=== PATIENT | male | born 1935 | race Caucasian/White ===

== ENCOUNTER 2017-10-04 15:35 | Inpatient (IN) | payer MEDICARE ==
[2017-10-04] MEDS ORDERED: Bacitracin Zinc 1 Packet ONE (16:36)
[2017-10-04 19:02] VITALS: BMI 35.9
--- NOTE | 2017-10-04 19:03 | HP ---
PRIMARY CARE PHYSICIAN: Dr. Arcadio Downey. HISTORY OF PRESENT ILLNESS: Patient is a very pleasant 81-year-old male who was visiting his mother- in-law at the correction. When he went to get into his car and turned around, he felt a little diz zy and then patient stated that he felt that his whole left side became very numb and he was unable t o move his left side. The patient also had a little scab to his left forehead from the car door. Th e patient stated that he was able to move his right hand when he started honking and blowing the horn and got someone's attention who then came into assist him. Patient was then taken to the ER. He un derwent a CT head that was done and it was negative. Patient's initial NIH score was I believe 12 on the field, but then it went down to 6 and when he came into our ER, he was zero. Patient currently denies any symptoms. The patient states that his blood pressure for the past few days have been very labile. PAST MEDICAL HISTORY: History of prostate cancer and high cholesterol. PAST SURGICAL HISTORY: He has had a hernia repair in the right side, prostatectomy and left knee rep lacement. SOCIAL HISTORY: He is a former smoker. Denies any alcohol or drug use. FAMILY HISTORY: No significant family history for strokes. MEDICATION: He takes only Lipitor 20 mg a day. ALLERGIES: No known drug allergies. REVIEW OF SYSTEMS: All negative except for the ones mentioned above in the HPI. PHYSICAL EXAMINATION: VITAL SIGNS: Patient is afebrile at 98.8, heart rate of 89, 16, 99% on room air, blood pressure of 1 60/100. GENERAL: He is awake, alert, oriented x3, does not appear in any distress. CARDIOVASCULAR: S1 and S2 present. No murmurs, rubs or gallops. HEENT: Normocephalic, atraumatic. LUNGS: Clear to auscultation. No rhonchi or wheezes noted. ABDOMEN: Soft, obese. Bowel sounds are present x2. He does have a large abdominal hernia. Neurolo gical thayer, he is able to move bilateral upper extremities and bilateral lower extremities without an y problems. Sensation intact to bilateral upper and bilateral lower. NEUROLOGIC: Cranial nerves 3-11 intact. Cerebellar tests including [id number]-[id number] and glcn-la-kfcd intact. SKIN: No cuts or bruises noted. MUSCULOSKELETAL: He does have some weakness on the left leg from hip and back pain. LABORATORY DATA AND IMAGING DATA: Results are as the following; his white count of 10.4, hemoglobin of 15.2, hematocrit of 41.2 and platelets of 237. His chemistry; sodium of 143, potassium 4.1, bicar bonate of 19, anion gap of 16, BUN of 21, creatinine 1.01. LFTs are normal and his urine was not com pleted. EKG has some T-wave flattening in the lateral leads in V5 and V6. ASSESSMENT AND PLAN: 1. The patient is a very pleasant 81-year-old male who comes into the hospital with left-sided weakn ess. 2. Transient ischemic attack versus stroke. The patient's symptoms have currently resolved. As CT head negative, I am not sure if he is able to get an MRI given his metal plates in his left knee. We will get an echocardiogram. We will get carotid Dopplers and we will also check a lipid panel in th e morning. We will also consult Neurology and continue his statin and start him on aspirin since he does not take aspirin at home. 3. Hyperlipidemia. We will check high cholesterol level and increase his Lipitor from 20 to 40. 4. Deep venous thrombosis prophylaxis, we will put the patient on SCD.
[2017-10-04] MEDS: Atorvastatin Calcium 40 MG TAB PO SCH (20:23)
[2017-10-04] MEDS ORDERED: Acetaminophen 325 MG TAB PO PRN (21:58)
[2017-10-04] MEDS ORDERED: Ondansetron ODT 4 MG TAB SL PRN (21:58)
[2017-10-04] MEDS ORDERED: Sodium Chloride 0.9% 1,000 ML IV SCH (21:58)
[2017-10-04] MEDS ORDERED: Ondansetron HCl/PF 4 MG/2 ML Vial IVP PRN (21:58)
[2017-10-05 05:28] LABS: Cardiac Risk 2.8 (Less than 4.5)
[2017-10-05] MEDS: Aspirin 325 mg Enteric Coated Tablet PO SCH (08:02)
[2017-10-05] MEDS: Enoxaparin Sodium 40 MG/0.4 ML SYRINGE SC SCH (08:03)
--- NOTE | 2017-10-05 09:10 | ULT ---
BILATERAL CAROTID DUPLEX ULTRASOUND: Date: 10/05/17 HISTORY: Left-sided weakness. FINDINGS: Real-time color Doppler evaluation of the right and left carotid systems was performed. A small amoun t of calcified plaque at the origin of both internal carotid arteries is seen. On the right side, peak systolic velocities of the common carotid were 70 cm/second. Internal carotid velocities were 47 cm/second and external carotid velocities were 46 cm/second. On the left side, peak systolic velocities of the common carotid were 73 cm/second. Internal carotid velocities were 62 cm/second and external carotid velocities were 43 cm/second. Vertebral flow was antegrade bilaterally. IMPRESSION: No evidence of hemodynamically significant stenosis of either internal carotid artery. POS: EZEKIEL
[2017-10-05] MEDS ORDERED: Acetaminophen 325 MG TAB PO PRN ×2 (11:58→12:00)
--- NOTE | 2017-10-05 12:34 | CON ---
DATE OF CONSULTATION: 10/05/2017 CHIEF COMPLAINT: Left-sided weakness, which was transient. HISTORY OF PRESENT ILLNESS: The patient is a 81-year-old gentleman with known history of hypertension. He reports since August he has been under significant stress. He and his are the primary caregivers for his qhszal-os-sno, who is 94. She had to be admitted to a care home in August and he has been taking care of that situation. The patient reports he got into his car, turned around and felt dizzy, and he felt his whole left side was numb and he could not lift his left arm. He also had hit the car door and he tried to alert by using his right hand and got someone's attention and he was taken to a local emergency room. He had a CT scan of the head. I do not have access to that report, but records state that his CT was negative. He improved subsequently, and upon arrival to our [facility] ER, he was close to baseline, but he continued to have dizziness and did not feel well through the night. This morning, he got up and walked quite a bit with the therapist, but therapist reports that he was still reporting some dizziness and she noted elevated blood pressures even today. PREVIOUS MEDICAL HISTORY: Prostate cancer in remission and hypercholesterolemia plus hypertension. PAST SURGICAL HISTORY: Hernia repair, prostate surgery, and left knee replacement with a steel joint. SOCIAL HISTORY: He does not smoke or drink and he stated, as a child, he learned he should not smoke or drink. He lives with his . He and his look after his ljmhty-fi-rxz, who is currently 94 years of age and had to be admitted to a care home. FAMILY HISTORY: On his side, he states there is no one with high blood pressure or strokes. CURRENT MEDICATIONS: Lipitor 20 mg per day. ALLERGIES: No drug allergies. REVIEW OF SYSTEMS: Pulmonary: Normal. Cardiac: Normal. Genitourinary: Positive for prior prostate problems. Gastrointestinal: Normal. Hematological : Normal. Dermatological: Normal. Neurological: Positive for numbness and weakness in the left arm, which was transient. Orthopedic: Hip problems for a couple of months. He has arthritis. CURRENT WORKUP: So far is pending MRI. His laboratory report showed triglycerides 65, cholesterol 136, LDL 75, HDL 48, heart disease risk ratio is 2.8, and other labs including hematology shows white count 10.4, hemoglobin 15.2 , hematocrit 41.2, platelets 237. PT 13.2, INR 1.0. Chemistry: Normal. Sodium at 143, potassium 4.9, chloride 112, bicarbonate 19, BUN 21, creatinine 1 , and liver function tests were within normal limits. Lipase was also within normal limits. TSH 1.41 and urinalysis was negative. CT scan of the head report is not available to me. PHYSICAL EXAMINATION: VITAL SIGNS: Blood pressure 151/102, pulse is 76, temperature 97.9, respiratory rate 18, O2 sats 94. GENERAL APPEARANCE: A well-built, well-nourished man, who is resting comfortably. Son was by his bedside. He has a small injury in the left forehead from falling on the car door. CHEST: Clear vesicular breathing. CARDIOVASCULAR: S1 and S2 heard, no murmurs. Carotids are clear. ABDOMEN: Soft, nontender, no organomegaly noted. NEUROLOGIC: Higher intellectual functions: Normal orientation to time place and person. Cranial nerves II-XII, normal extraocular movements with normal fundus examination. Normal pupillary reaction. No facial asymmetry noted. Normal sensation of face bilaterally. Tongue midline, normal elevation of palate. Normal hearing bilaterally to finger rub.Motor Examination: Bulk normal, tone normal, strength 5/5 throughout in upper and lower extremities. There was some limitation of testing in the left iliopsoas due to his hip pain. Muscle groups tested are iliopsoas, hamstrings, quadriceps, ankle dorsiflexion, plantar flexion, deltoid, biceps, triceps, wrist extension/flexion, finger extension and flexion bilaterally. Deep tendon reflexes were 1+ throughout. Sensory Examination: Normal touch, pinprick, proprioception, vibration, and temperature bilaterally except for left toe. Cerebellar: Normal [id number]-[id number] , ucik-zz-rkky. Gait not tested. IMPRESSION: The patient is a 81-year-old man with history of sudden onset dizziness along with left upper extremity weakness and left-sided numbness. He has a prior hip problem on the left side. He notices asymmetry of his hips and this particular hip issue has been going on for 2 months. His symptoms resolved through the night and currently his examination is essentially normal except for some limitation of motor testing in the left lower extremity, mainly for hip flexion, which seems to hurt the patient. Clinical diagnosis is most consistent with transient ischemic attack. At this time, we are waiting on his MRI scan. RECOMMENDATIONS: 1. Try to complete the MRI of the brain to see if there was any acute event, please complete his stroke workup including echocardiogram, carotid Doppler. 2. Risk factor control, particularly for his hypertension. 3. Stress relief and management of personally stressful situations and education regarding this. 4. Aspirin 81 mg per day for stroke prophylaxis. 5. If MRI is negative, he can be discharged home with a followup with his general physician. HEATHER
--- NOTE | 2017-10-05 13:35 | MRI ---
MRI BRAIN PERFORMED WITHOUT CONTRAST ENHANCEMENT: Date: 10/05/17 HISTORY: Stroke symptoms. Left-sided weakness. COMPARISON: CT examination done yesterday. FINDINGS: There is generalized ventricular and sulcal prominence. There are areas of T2 and FLAIR hyperintensit y within the white matter consistent with some chronic white matter change. On the diffusion-weighted sequence, there are a few scattered areas of restricted diffusion over the right posterior frontopar ietal region, as well as an area within the right thalamus that are compatible with more acute infarc t. These would be in a right MCA distribution. I do not appreciate any hemorrhage on the diffusion-we ighted sequence. IMPRESSION: A few scattered more linear foci along the gyri in the right posterior frontoparietal region consiste nt with acute to subacute infarct. POS: EZEKIEL
--- NOTE | 2017-10-05 15:16 | PDOC.PN ---
- Subjective Encounter Start Date: 10/05/17 Encounter Start Time: 10:30 Subjective: pt up in bed no complains - Objective Vital Signs & Weight: Vital Signs (12 hours) Temp Pulse Resp BP Pulse Ox 10/05/17 13:26 94 L 10/05/17 11:29 97.9 F 76 18 151/102 H 94 L 10/05/17 08:00 97.8 F 76 16 10/05/17 07:17 97.8 F 76 16 145/97 H 94 L 10/05/17 04:47 97.6 F 65 20 145/97 H 95 Weight Weight 222 lb 5 oz I&O: 10/04/17 10/05/17 10/06/17 06:59 06:59 06:59 Intake Total 340 Output Total 1050 Balance -710 Phys Exam - Physical Examination HEENT: PERRLA, moist MMs, sclera anicteric, TM's clear, oral pharynx no lesions , 2+ tonsils Neck: no nodes, no JVD, supple, full ROM Respiratory: no wheezing, no rales, no rhonchi, wheezing present, clear to auscultation bilateral Cardiovascular: RRR, no significant murmur, no rub, gallop, irregular Gastrointestinal: soft, non-tender, no distention, positive bowel sounds Musculoskeletal: no edema, pulses present, edema present Neurological: non-focal, normal sensation, moves all 4 limbs Dx/Plan (1) Stroke Code(s): I63.9 - CEREBRAL INFARCTION, UNSPECIFIED Status: Acute (2) TIA (transient ischemic attack) Status: Acute (3) Hyperlipemia Code(s): E78.5 - HYPERLIPIDEMIA, UNSPECIFIED Status: Acute - Plan * . carotid no stenosis noted echo pending MRi did indicated some restrictive foci noted pt on asa and statin. Review of Systems - Review of Systems ENT: negative: Ear Pain, Ear Discharge, Nose Pain, Nose Discharge, Nose Congestion, Mouth Pain, Mouth Swelling, Throat Pain, Throat Swelling, Other Respiratory: negative: Cough, Dry, Shortness of Breath, Hemoptysis, SOB with Excertion, Pleuritic Pain, Sputum, Wheezing Cardiovascular: negative: chest pain, palpitations, orthopnea, paroxysmal nocturnal dyspnea, edema, light headedness, other Gastrointestinal: negative: Nausea, Vomiting, Abdominal Pain, Diarrhea, Constipation, Melena, Hematochezia, Other - Medications/Allergies Allergies/Adverse Reactions: Allergies Allergy/AdvReac Type Severity Reaction Status Date / Time No Known Drug Allergies Allergy Verified 10/04/17 21:40 Medications: Current Medications Acetaminophen (Tylenol) 650 mg PO Q6H PRN PRN Reason: Pain Last Admin: 10/05/17 12:49 Dose: 650 mg Aspirin (Ecotrin) 325 mg PO DAILY [facility] Last Admin: 10/05/17 08:02 Dose: 325 mg Atorvastatin Calcium (Lipitor) 40 mg PO HS [facility] Last Admin: 10/04/17 20:23 Dose: 40 mg Enoxaparin Sodium (Lovenox) 40 mg SC 0900 [facility] Last Admin: 10/05/17 08:03 Dose: 40 mg Sodium Chloride (Flush - Normal Saline) 10 ml IVF Q12HR [facility] Last Admin: 10/05/17 08:03 Dose: 10 ml Sodium Chloride (Flush - Normal Saline) 10 ml IVF PRN PRN PRN Reason: Saline Flush
[2017-10-05] MEDS: Atorvastatin Calcium 40 MG TAB PO SCH (20:31)
[2017-10-06] MEDS: Enoxaparin Sodium 40 MG/0.4 ML SYRINGE SC SCH (08:26)
[2017-10-06] MEDS: Aspirin 325 mg Enteric Coated Tablet PO SCH (08:26)
[2017-10-06] MEDS ORDERED: ISOVUE-370 76%-LOCM 1 ML ONE (09:42)
--- NOTE | 2017-10-06 12:09 | RAD ---
LEFT HIP 2 VIEWS: Date: 10/06/17 HISTORY: Left hip pain. FINDINGS: There are degenerative changes in the left hip manifested by osteophyte formation, joint space narrow ing, and subchondral sclerosis. No fracture, dislocation, or bony destruction seen. Postop changes se en in the pelvis. IMPRESSION: Left hip osteoarthritis. POS: EZEKIEL
--- NOTE | 2017-10-06 14:16 | CT ---
CONTRAST ENHANCED CTA CAROTID ARTERIES: HISTORY: Stroke. FINDINGS: Contrast-enhanced CTA carotid artery is obtained and 2D and 3D reconstructed images performed on an [employer] 3D work station. Some calcification is seen in the aortic arch. No significant evidence of superior mediastinal mariel s or lesions seen. The right brachiocephalic artery is patent. Right and left common carotid arteries are patent. The right and left internal carotid arteries are patent. No significant evidence of stenosis or ulce ration seen. Right and left vertebral arteries are unremarkable. IMPRESSION: Unremarkable contrast-enhanced CTA of carotid arteries. POS: EZEKIEL
[2017-10-06] MEDS ORDERED: ALPRAZolam 0.25 MG TAB PO PRN (16:40)
[2017-10-06] MEDS: Carvedilol 6.25 MG TAB PO SCH (17:19)
[2017-10-06] MEDS: traMADol HCl 50 MG TAB PO PRN (17:20)
--- NOTE | 2017-10-06 18:26 | PDOC.PN ---
- Subjective Encounter Start Date: 10/06/17 Encounter Start Time: 11:30 Subjective: pt up in bed complains of pain to his left hip - Objective Vital Signs & Weight: Vital Signs (12 hours) Temp Pulse Pulse Pulse Resp BP BP 10/06/17 17:19 135/106 H 10/06/17 15:37 99.2 F 79 16 10/06/17 11:32 98.5 F 76 14 10/06/17 11:15 80 84 154/110 H BP BP Pulse Ox 10/06/17 17:19 10/06/17 15:37 147/96 H 94 L 10/06/17 11:32 146/112 H 94 L 10/06/17 11:15 158/127 H I&O: 10/05/17 10/06/17 10/07/17 06:59 06:59 06:59 Intake Total 900 Balance 900 Phys Exam - Physical Examination HEENT: PERRLA, moist MMs, sclera anicteric, TM's clear, oral pharynx no lesions , 2+ tonsils Neck: no nodes, no JVD, supple, full ROM Respiratory: no wheezing, no rales, no rhonchi, wheezing present, clear to auscultation bilateral Cardiovascular: RRR, no significant murmur, no rub, gallop, irregular Gastrointestinal: soft, non-tender, no distention, positive bowel sounds mild pain on movement of left hip joint Dx/Plan (1) Stroke Code(s): I63.9 - CEREBRAL INFARCTION, UNSPECIFIED Status: Acute (2) TIA (transient ischemic attack) Status: Acute (3) Hyperlipemia Code(s): E78.5 - HYPERLIPIDEMIA, UNSPECIFIED Status: Acute (4) Systolic heart failure Code(s): I50.20 - UNSPECIFIED SYSTOLIC (CONGESTIVE) HEART FAILURE Status: Acute - Plan * Pt complained of left hip pain xray indicated osteoarthritis. * spoke with neurology about pt's MRI results. does not appear to be embolic. * did order cta neck since small amount of plaque noted in internal artery origin. * ef of 40-45% which is new. will get cardiology * bp meds added for better bp control * pt on asa/statin Review of Systems - Review of Systems ENT: negative: Ear Pain, Ear Discharge, Nose Pain, Nose Discharge, Nose Congestion, Mouth Pain, Mouth Swelling, Throat Pain, Throat Swelling, Other Respiratory: negative: Cough, Dry, Shortness of Breath, Hemoptysis, SOB with Excertion, Pleuritic Pain, Sputum, Wheezing Cardiovascular: negative: chest pain, palpitations, orthopnea, paroxysmal nocturnal dyspnea, edema, light headedness, other Gastrointestinal: negative: Nausea, Vomiting, Abdominal Pain, Diarrhea, Constipation, Melena, Hematochezia, Other Musculoskeletal: Other (left hip pain) - Medications/Allergies Allergies/Adverse Reactions: Allergies Allergy/AdvReac Type Severity Reaction Status Date / Time No Known Drug Allergies Allergy Verified 10/04/17 21:40 Medications: Current Medications Acetaminophen (Tylenol) 650 mg PO Q6H PRN PRN Reason: Pain Last Admin: 10/05/17 12:49 Dose: 650 mg Alprazolam (Xanax) 0.25 mg PO BIDPRN PRN PRN Reason: Anxiety Amlodipine Besylate (Norvasc) 10 mg PO DAILY [facility] Aspirin (Ecotrin) 325 mg PO DAILY [facility] Last Admin: 10/06/17 08:26 Dose: 325 mg Atorvastatin Calcium (Lipitor) 40 mg PO HS [facility] Last Admin: 10/05/17 20:31 Dose: 40 mg Carvedilol (Coreg) 6.25 mg PO BID-WM [facility] Last Admin: 10/06/17 17:19 Dose: 6.25 mg Enoxaparin Sodium (Lovenox) 40 mg SC 0900 [facility] Last Admin: 10/06/17 08:26 Dose: 40 mg Sodium Chloride (Flush - Normal Saline) 10 ml IVF Q12HR [facility] Last Admin: 10/06/17 08:27 Dose: 10 ml Sodium Chloride (Flush - Normal Saline) 10 ml IVF PRN PRN PRN Reason: Saline Flush Tramadol HCl (Ultram) 50 mg PO Q6H PRN PRN Reason: Mild-Moderate Pain (1-5) Last Admin: 10/06/17 17:20 Dose: 50 mg
[2017-10-06] MEDS: Atorvastatin Calcium 40 MG TAB PO SCH (20:54)
--- NOTE | 2017-10-06 22:19 | PRG ---
DATE OF SERVICE: 10/06/2017 SUBJECTIVE: Mr. Montanez is a pleasant 81-year-old male, who presented with an acute onset o f left-sided weakness. He had MRI brain done, which showed few scattered right middle cerebral arter y distribution ischemic infarct. Today, he reports having noted improvement in his strength. He is able to move his left upper and left lower extremity without any difficulty. He was able to walk wit h support of therapist independently without any difficulty. Currently, he denies any headache, ches t pain, palpitation, numbness, tingling or weakness. PHYSICAL EXAMINATION: VITAL SIGNS: Blood pressure of 147/96, pulse of 79, temperature of 99.2, respirations of 16, O2 sats of 94% on room air. GENERAL: Well-developed, well-nourished male, in no apparent distress. RESPIRATORY: Clear to auscultation bilaterally. CARDIOVASCULAR: Regular rate and rhythm. NEUROLOGICAL: Mental status: The patient is awake, alert, oriented x3. Speech and language: Fluen t speech. Cranial nerves: Pupils are 3 mm and reactive. Visual vizcarra are intact. External muscle s are intact. No nystagmus is noted. Face is symmetric. Tongue and uvula are midline. Motor exam showed normal tone and bulk with 5/5 strength in both upper and lower extremities. Sensory: Sensati on is intact and symmetric. Coordination intact to ipitdy-lctp-dlcjil and finger tapping bilaterally . LABORATORY DATA: Labs are reviewed, which includes lipid profile, which is essentially normal. IMAGING STUDIES: MRI brain without contrast was reviewed, showed a few scattered right middle cerebr al artery distribution ischemic infarct. Carotid Doppler results were reviewed, which showed no acut e extracranial vascular abnormality. IMPRESSION: 1. Cerebral infarction. 2. Hypertension. ASSESSMENT AND PLAN: Mr. Montanez is a pleasant 81-year-old male, who presented with the lef t-sided weakness. He is found to have scattered right middle cerebral artery distribution ischemic i nfarct. This is likely secondary to poorly controlled risk factors including high blood pressure. I have recommended Dr. Yañez to obtain a CT angiogram of the neck to rule out a vascular abnormality as the cause for his stroke. Continue PT, OT, speech therapy. If physical therapy agrees for outpat ient therapy, then he is okay to be discharged home. Follow up with his primary care physician in 4- 6 weeks. Thank you for your consultation.
[2017-10-07] MEDS ORDERED: Amlodipine 10 MG TAB PO SCH (09:00)
[2017-10-07] MEDS: Carvedilol 6.25 MG TAB PO SCH ×2 (09:32→16:13)
[2017-10-07] MEDS: Aspirin 325 mg Enteric Coated Tablet PO SCH (09:33)
[2017-10-07] MEDS: traMADol HCl 50 MG TAB PO PRN ×2 (09:34→16:15)
[2017-10-07] MEDS: Enoxaparin Sodium 40 MG/0.4 ML SYRINGE SC SCH (09:36)
--- NOTE | 2017-10-07 11:05 | CON ---
DATE OF CONSULTATION: 10/07/2017 HISTORY OF PRESENT ILLNESS: Patient is a pleasant 81-year-old gentleman, who presented with left-sided weakness. The patient has a previous history of hypertension and dyslipidemia. The patient underwent a cardiac evaluation in 2012. He underwent a stress test, which revealed evidence of ischemia in one distribution. The patient was placed on medical therapy. He was in his usual state of health when he developed acute onset of left-sided weakness. He denied having difficulty with his speech. The patient states the symptom lasted for approximately an hour. He came to the hospital for further evaluation. The patient denied having any chest pain or palpitations. PAST MEDICAL HISTORY: 1. Prostate carcinoma. 2. Hypertension. 3. Dyslipidemia. PAST SURGICAL HISTORY: SOCIAL HISTORY: Former smoker. FAMILY HISTORY: No strong family history of coronary artery disease. MEDICATIONS ON ADMISSION: Coreg 6.25 b.i.d., Lipitor 40 at bedtime, aspirin 325 daily, Norvasc 10 daily. REVIEW OF SYSTEMS: Ten-point system, otherwise, unremarkable. PHYSICAL EXAMINATION: GENERAL: A well-developed gentleman in no acute distress. VITAL SIGNS: Blood pressure 126/96. NECK: No jugular vein distention. LUNGS: Clear to auscultation. HEART: Regular rate and rhythm, normal S1 and S2 with a 1/6 systolic murmur. ABDOMEN: Nondistended. EXTREMITIES: Showed trace edema. SKIN: Warm and dry. NEUROLOGIC EXAM: Nonfocal. VASCULAR: Radial pulses are 2+. LABORATORY RESULTS: Revealed him to have his white blood count 10.4, hemoglobin 15.2, hematocrit 41.2, platelets 237. Sodium was 143, potassium 4.1 , chloride 112, bicarbonate 19, BUN 21, creatinine is 1.0. His glucose is 95. His EKG revealed him to have normal sinus rhythm with a nonspecific ST abnormality. monitoring coordinator revealed several runs of nonsustained ventricular tachycardia. His echocardiogram revealed him to have a mild decreased left ventricular ejection fraction of 40%-45%, mild aortic stenosis. IMPRESSION: 1. Transient ischemic attack. 2. Mild cardiomyopathy. 3. Nonsustained ventricular tachycardia. 4. Hypertension 5. Dyslipidemia. 6. Aortic stenosis This gentleman presents with a transient ischemia attack. He was found on echocardiogram to have a decreased ejection fraction on monitor technician and have nonsustained ventricular tachycardia. From a cardiac standpoint, I would recommend increasing the dose of Coreg. With a decreased ejection fraction , I would recommend the patient switch from Norvasc to DENA inhibitor therapy. The patient may benefit from a LINQ monitor to monitor for ventricular tachycardia and possible atrial fibrillation. We will follow this patient with you through his hospitalization. Further recommendation will follow. MTDD
--- NOTE | 2017-10-07 12:17 | PDOC.PN ---
- Subjective Encounter Start Date: 10/07/17 Encounter Start Time: 12:25 Patient seen and examined following admission for TIA/CVA. ECHO showed EF 40-45% . Complains of L rib pain following a fall at home. Otherwise feels well. No acute events overnight. - Objective MAR Reviewed: Yes Vital Signs & Weight: Vital Signs (12 hours) Temp Pulse Resp BP BP Pulse Ox 10/07/17 12:00 97.8 F 65 16 114/76 96 10/07/17 09:33 65 10/07/17 09:32 126/96 H 10/07/17 07:43 97.5 F L 65 16 126/96 H 93 L 10/07/17 04:00 97.9 F 62 122/93 H 94 L Weight Weight 216 lb 9.6 oz I&O: 10/06/17 10/07/17 10/08/17 06:59 06:59 06:59 Intake Total 1140 Output Total 925 Balance 215 Phys Exam - Physical Examination Constitutional: NAD HEENT: moist MMs, sclera anicteric, oral pharynx no lesions Neck: no JVD, supple, full ROM Respiratory: no wheezing, no rales, no rhonchi, clear to auscultation bilateral Cardiovascular: RRR, no significant murmur, no rub Musculoskeletal: no edema, pulses present Neurological: non-focal Psychiatric: normal affect, A&O x 3 Skin: no rash, normal turgor Dx/Plan (1) Systolic CHF, chronic Code(s): I50.22 - CHRONIC SYSTOLIC (CONGESTIVE) HEART FAILURE Status: Chronic Comment: Stable, euvolemic. EF 40-45%. (2) Hyperlipemia Code(s): E78.5 - HYPERLIPIDEMIA, UNSPECIFIED Status: Acute Qualifiers: Hyperlipidemia type: unspecified Qualified Code(s): E78.5 - Hyperlipidemia , unspecified (3) Stroke Code(s): I63.9 - CEREBRAL INFARCTION, UNSPECIFIED Status: Acute Qualifiers: CVA mechanism: thrombosis Laterality of affected vessel: unspecified (4) Rib pain on left side Code(s): R07.81 - PLEURODYNIA Status: Acute Comment: Obtain CXR. - Plan cont current plan of care, continue antibiotics, DVT proph w/lovenox * . Review of Systems - Medications/Allergies Allergies/Adverse Reactions: Allergies Allergy/AdvReac Type Severity Reaction Status Date / Time No Known Drug Allergies Allergy Verified 10/04/17 21:40 Medications: Current Medications Acetaminophen (Tylenol) 650 mg PO Q6H PRN PRN Reason: Pain Last Admin: 10/05/17 12:49 Dose: 650 mg Alprazolam (Xanax) 0.25 mg PO BIDPRN PRN PRN Reason: Anxiety Aspirin (Ecotrin) 325 mg PO DAILY [facility] Last Admin: 10/07/17 09:33 Dose: 325 mg Atorvastatin Calcium (Lipitor) 40 mg PO HS [facility] Last Admin: 10/06/17 20:54 Dose: 40 mg Carvedilol (Coreg) 12.5 mg PO BID-[facility] Enoxaparin Sodium (Lovenox) 40 mg SC 0900 [facility] Last Admin: 10/07/17 09:36 Dose: 40 mg Lisinopril (Zestril) 10 mg PO DAILY [facility] Sodium Chloride (Flush - Normal Saline) 10 ml IVF Q12HR [facility] Last Admin: 10/07/17 09:38 Dose: 10 ml Sodium Chloride (Flush - Normal Saline) 10 ml IVF PRN PRN PRN Reason: Saline Flush Tramadol HCl (Ultram) 50 mg PO Q6H PRN PRN Reason: Mild-Moderate Pain (1-5) Last Admin: 10/07/17 09:34 Dose: 50 mg
--- NOTE | 2017-10-07 15:00 | RAD ---
PORTABLE AP CHEST XRAY: DATE: 10/07/17. HISTORY: Left rib pain. COMPARISON: None available. FINDINGS: There is elevation of the left hemidiaphragm with atelectasis at the left lung base. Right lung is c lear. Cardiac silhouette is magnified by projection but is at the upper limits of normal to borderli ne enlarged. Thoracic aorta is ectatic with minimal vascular calcifications. Pulmonary vasculature is within normal limits. There are curvilinear calcifications overlying each lung apex, but no pleur al-based calcifications were seen on CT of the neck also obtained on this date just after this study was performed. Findings may be related to superimposition of structures. Mild degenerative change is seen in the spine. IMPRESSION: 1. Elevation of left hemidiaphragm with mild volume loss at the left lung base. 2. Upper limits of normal to borderline cardiomegaly. POS: [facility]
[2017-10-07] MEDS: Atorvastatin Calcium 40 MG TAB PO SCH (21:40)
[2017-10-08 05:26] LABS: Hemoglobin 14.2 g/dL (14.0-18.0); Mean Corpuscular HGB CONC 33.9 g/dL (32.0-36.0); Mean Corpuscular Volume 94.5 fL (78.0-98.0); Mean Platelet Volume 7.1 fL (7.4-10.4); Platelet Count 220 thou/uL (130-400); RBC Distribution Width 12.1 % (11.5-14.5); Red Blood Cell (RBC) Count 4.43 mill/uL (4.70-6.10); White Blood Cell (WBC) Count 9.1 thou/uL (4.8-10.8)
[2017-10-08 05:58] LABS: Anion Gap 11 mmol/L (10-20); BUN (Urea Nitrogen) 23 mg/dL (8.4-25.7); Calc. Creatinine Clearance 101 mL/min (70-130); Calcium 9.3 mg/dL (7.8-10.44); Carbon Dioxide 26 mmol/L (23-31); Chloride 107 mmol/L (98-107); Estimated GFR-MDRD 88; Glucose 80 mg/dL (83-110); Potassium 4.1 mmol/L (3.5-5.1); Sodium 140 mmol/L (136-145)
[2017-10-08] MEDS ORDERED: Lisinopril 10 MG TAB PO SCH (09:00)
[2017-10-08] MEDS: Aspirin 325 mg Enteric Coated Tablet PO SCH (09:44)
[2017-10-08] MEDS: Carvedilol 6.25 MG TAB PO SCH ×2 (09:44→15:52)
[2017-10-08] MEDS: Enoxaparin Sodium 40 MG/0.4 ML SYRINGE SC SCH (09:45)
[2017-10-08] MEDS: traMADol HCl 50 MG TAB PO PRN (09:45)
--- NOTE | 2017-10-08 11:32 | PDOC.PN ---
- Subjective Encounter Start Date: 10/08/17 Encounter Start Time: 11:32 Patient seen and examined following admission for TIA/CVA. ECHO showed EF 40-45% .No new complaints today. Had NSVT on tele. Cardiology on board. No acute events overnight. - Objective MAR Reviewed: Yes Vital Signs & Weight: Vital Signs (12 hours) Temp Pulse Resp BP Pulse Ox 10/08/17 08:45 97.5 F L 61 16 94 L 10/08/17 08:00 97.5 F L 61 16 121/94 H 94 L 10/08/17 03:55 97.6 F 52 L 18 111/81 95 10/07/17 23:54 97.5 F L 62 18 96/69 96 Weight Weight 219 lb 14.4 oz I&O: 10/07/17 10/08/17 10/09/17 06:59 06:59 06:59 Intake Total 1140 Output Total 925 250 Balance 215 -250 Result Diagrams: 10/08/17 04:44 10/08/17 04:44 Phys Exam - Physical Examination Constitutional: NAD HEENT: moist MMs, sclera anicteric Neck: supple, full ROM Respiratory: no wheezing, no rales, no rhonchi, clear to auscultation bilateral Cardiovascular: RRR, no significant murmur, no rub Gastrointestinal: soft, non-tender, no distention, positive bowel sounds Musculoskeletal: no edema, pulses present Neurological: non-focal, moves all 4 limbs Psychiatric: normal affect, A&O x 3 Skin: no rash, normal turgor Dx/Plan (1) Stroke Code(s): I63.9 - CEREBRAL INFARCTION, UNSPECIFIED Status: Acute Qualifiers: CVA mechanism: thrombosis Laterality of affected vessel: unspecified Comment: Improving with therapy. (2) Systolic CHF, chronic Code(s): I50.22 - CHRONIC SYSTOLIC (CONGESTIVE) HEART FAILURE Status: Chronic Comment: Stable, euvolemic. EF 40-45%. (3) Hyperlipemia Code(s): E78.5 - HYPERLIPIDEMIA, UNSPECIFIED Status: Acute Qualifiers: Hyperlipidemia type: unspecified Qualified Code(s): E78.5 - Hyperlipidemia , unspecified (4) Rib pain on left side Code(s): R07.81 - PLEURODYNIA Status: Acute Comment: No fracutres on CXR. Continue pain control and encourage incentive spirometer use. - Plan cont current plan of care, PT/OT, out of bed/ambulate, DVT proph w/lovenox - Had NSVT on tele. Reviewed by cardiology- will likely need a LINQ monitor - Coreg dosage increased- will monitor BP. Amlodipine discontinued. Low dose ACEi also started - Monitor BP and pulse rate Review of Systems - Medications/Allergies Allergies/Adverse Reactions: Allergies Allergy/AdvReac Type Severity Reaction Status Date / Time No Known Drug Allergies Allergy Verified 10/04/17 21:40 Medications: Current Medications Acetaminophen (Tylenol) 650 mg PO Q6H PRN PRN Reason: Pain Last Admin: 10/05/17 12:49 Dose: 650 mg Alprazolam (Xanax) 0.25 mg PO BIDPRN PRN PRN Reason: Anxiety Aspirin (Ecotrin) 325 mg PO DAILY [facility] Last Admin: 10/08/17 09:44 Dose: 325 mg Atorvastatin Calcium (Lipitor) 40 mg PO HS [facility] Last Admin: 10/07/17 21:40 Dose: 40 mg Carvedilol (Coreg) 12.5 mg PO BID-[facility] Last Admin: 10/08/17 09:44 Dose: 12.5 mg Enoxaparin Sodium (Lovenox) 40 mg SC 0900 [facility] Last Admin: 10/08/17 09:45 Dose: 40 mg Lisinopril (Zestril) 10 mg PO DAILY [facility] Last Admin: 10/08/17 09:44 Dose: 10 mg Sodium Chloride (Flush - Normal Saline) 10 ml IVF Q12HR [facility] Last Admin: 10/08/17 09:45 Dose: 10 ml Sodium Chloride (Flush - Normal Saline) 10 ml IVF PRN PRN PRN Reason: Saline Flush Tramadol HCl (Ultram) 50 mg PO Q6H PRN PRN Reason: Moderate Pain (4-6) Last Admin: 10/08/17 09:45 Dose: 50 mg
--- NOTE | 2017-10-08 13:49 | PRG ---
DATE OF SERVICE: 10/08/2017 HISTORY OF PRESENT ILLNESS: Mr. Montanez is doing well. He has retained most of his numbness to the l eft and right arm. He was seen and evaluated by Dr. Quoc Francis yesterday. PHYSICAL EXAMINATION: VITAL SIGNS: Blood pressure 109/83, pulse 81, temperature 97.8. LUNGS: Clear to auscultation. CARDIAC: Regular rate and rhythm. ABDOMEN: Soft, nontender, nondistended. EXTREMITIES: No edema. PERTINENT LABORATORY DATA: Hemoglobin 14.4, creatinine 0.8. Chest x-ray; borderline cardiomegaly. Echo Doppler shows LVEF 40-45%. Telemetry monitoring shows sinus rhythm with one short run of nonsustained VT. IMPRESSION: 1. Transient ischemic attack. 2. Mild cardiomyopathy. 3. Nonsustained ventricular tachycardia. RECOMMENDATIONS: At this point, I would recommend close observation. Nonsustained VT may be related to recent transient ischemic attack. At this point, I recommend a 3-week event recorder to assess f or any significant dysrhythmias. If it is negative, would consider an implantable loop recorder. Co ntinue carvedilol in addition to atorvastatin and a full dose aspirin. It is okay from my standpoint to discharge home once okay with the primary team.
[2017-10-08 16:16] VITALS: TEMP 97.7
[2017-10-08 16:38] VITALS: BP 117/76
--- NOTE | 2017-10-09 13:19 | DIS ---
DATE OF ADMISSION: 10/04/2017 DATE OF DISCHARGE: 10/08/2017 DISCHARGE DIAGNOSES: cerebrovascular accident, chronic systolic congestive heart failure, hyperlipidemia, left rib side pain, and nonsustained ventricular tachycardia. HISTORY OF PRESENT ILLNESS/HOSPITAL COURSE: Mr. Tarik Mckenna is a 81-year- old male who has a past medical history of prostate cancer and hyperlipidemia, who presented to hospital with dizziness and left-sided hemiparesis. He then went to the ER where he had a CT head which was done that was negative. Initial NIH score was about 12 in the field by the emergency room, it went down to 6 and by the time he was transferred to [facility] was 0. He had no symptoms while in hospital. He had MRI brain which showed a few scattered mild linear foci across the gyri on the right posterior frontoparietal region consistent with acute to subacute infarct. He also had carotid Dopplers, which did not show any significant stenosis. His echocardiogram revealed an EF of 40% -45% and mild aortic stenosis and tricuspid regurgitation. While in hospital, he also had NSVT and he was reviewed by Cardiology who recommended that he be discharged on a 3-week event recorder to assess for significant dysrhythmia. If negative, then he might need to be placed on implantable loop recorder leads. He was discharged on carvedilol and atorvastatin as well as a full dose of aspirin. The patient remained stable and was deemed stable for discharge. DISCHARGE MEDICATIONS: Aspirin 325 mg daily, atorvastatin 40 mg at bedtime, carvedilol 12.5 mg twice a day with meals, lisinopril 10 mg daily. He was seen and examined on the day of discharge. For details, refer to today's progress notes. LABORATORY DATA: WBC is 9.1, hemoglobin 14.2, platelet count 220. Sodium 140, potassium 4.1, chloride 107, carbon dioxide 26, anion gap 11, BUN 23, creatinine 0.84, glucose 80, calcium 9.3. IMAGING: Echocardiogram, CT angio, hip x-ray, brain MRI and carotid Doppler, chest x-ray. CT angio showed unremarkable contrast enhanced CTA of the carotid arteries. CONSULT: Neurology and Cardiology. PROCEDURES: None. CONDITION AT DISCHARGE: Stable and improved. DIET: Heart healthy. ACTIVITY: To resume as tolerates. HEALTHCARE GOALS: Follow up with primary care physician within 1 week of discharge. CONDITION ON DISCHARGE: Stable and improved. Discharge time 65 minutes including chart review and documentation. MTDD
== END 2017-10-08 18:55 | disposition home or self-care (01) | DRG 64 ==
LOC: ERS 15:35 → 2SE 18:33 → OBSVTOIN 10-06 10:59
PROVIDERS: ADMIT Internal Medicine; ATTEND Internal Medicine
DX: I63.9 Cerebral infarction, unspecified (principal); I50.23 Acute on chronic systolic (congestive) heart failure; I42.9 Cardiomyopathy, unspecified; I47.2 Ventricular tachycardia; E78.5 Hyperlipidemia, unspecified; Z87.891 Personal history of nicotine dependence; Z85.46 Personal history of malignant neoplasm of prostate; I11.0 Hypertensive heart disease with heart failure; I08.2 Rheumatic disorders of both aortic and tricuspid valves; E78.00 Pure hypercholesterolemia, unspecified; R07.81 Pleurodynia
CPT/HCPCS: 36415; 70498; 70551; 71045; 80048; 80061; 85027; 93306; 93880; 94760; A4216; G8978-GP-CJ; G8979-GP-CH; G8987-GO-CJ; G8988-GO-CI; G9162-GN-CH; G9163-GN-CH; J1650

== ENCOUNTER 2017-12-03 12:32 | Outpatient (CLI) | payer MEDICARE ==
[2017-12-03 13:58] LABS: Hemoglobin 14.7 g/dL (14.0-18.0); Mean Corpuscular HGB CONC 34.1 g/dL (32.0-36.0); Mean Corpuscular Hemoglobin 32.8 pg (27.0-31.0); Mean Corpuscular Volume 96.2 fL (78.0-98.0); Mean Platelet Volume 7.3 fL (7.4-10.4); Platelet Count 211 thou/uL (130-400); Red Blood Cell (RBC) Count 4.47 mill/uL (4.70-6.10); White Blood Cell (WBC) Count 8.4 thou/uL (4.8-10.8)
[2017-12-03 14:24] LABS: ALT (SGPT) 11 U/L (8-55); AST (SGOT) 16 U/L (5-34); Albumin 4.3 g/dL (3.4-4.8); Alkaline Phosphatase 82 U/L (40-150); Anion Gap 13 mmol/L (10-20); BUN (Urea Nitrogen) 26 mg/dL (8.4-25.7); Bilirubin, Total 0.9 mg/dL (0.2-1.2); Calc. Creatinine Clearance 0 mL/min (70-130); Calcium 9.1 mg/dL (7.8-10.44); Carbon Dioxide 25 mmol/L (23-31); Chloride 110 mmol/L (98-107); Estimated GFR-MDRD 66; Globulin 2.7 g/dL (2.4-3.5); Glucose 89 mg/dL (83-110); Potassium 4.8 mmol/L (3.5-5.1); Sodium 143 mmol/L (136-145)
[2017-12-03 14:34] LABS: PTT 30.1 SEC (22.9-36.1); Prothrombin Time 13.6 SEC (12.0-14.7)
--- NOTE | 2017-12-03 17:31 | EKG ---
Test Reason : Blood Pressure : / mmHG Vent. Rate : 068 BPM Atrial Rate : 068 BPM P-R Int : 162 ms QRS Dur : 096 ms QT Int : 408 ms P-R-T Axes : 037 -07 223 degrees QTc Int : 433 ms Sinus rhythm with Premature atrial complexes /Supraventricular bigeminy Minimal voltage criteria for LVH, may be normal variant T wave abnormality, consider inferolateral ischemia Abnormal ECG When compared with ECG of 30-JAN-2004 13:49, Premature atrial complexes are now Present T wave inversion now evident in Inferior leads Confirmed by FARRAH HERNANDEZ ([id number]) on 12/03/2017 5:31:17 PM Referred By: STEVE Confirmed By:FARRAH HERNANDEZ
== END 2017-12-03 12:33 | disposition home or self-care (01) ==
LOC: LABBT 12:32
PROVIDERS: ATTEND Internal Medicine Cardiovascular Disease
DX: Z01.810 Encounter for preprocedural cardiovascular examination (principal); I47.2 Ventricular tachycardia
CPT/HCPCS: 80053; 85027; 85610; 85730; 93005; 93010

== ENCOUNTER → 2017-12-08 | Day surgery (SDC) | payer MEDICARE ==
[2017-12-03 12:43] VITALS: BMI 32.3
[~2017-12-08] MED LIST: Diazepam 5 MG TAB ONE; Fentanyl 100 MCG/2 ML VIAL ONE; Heparin 10,000 UNITS/1 ML VIAL ONE; Iopamidol 370 76% 100 ML VIAL ONE; Lidocaine 1% (PF) 30 ML VIAL ONE; Midazolam HCl 2 mg/2 ml Vial ONE
--- NOTE | 2017-12-08 10:50 | CON ---
DATE OF CONSULTATION: 12/08/2017 HISTORY OF PRESENT ILLNESS: Mr. Montanez is a 81-year-old gentleman who underwent elective cardiac cat heterization today. He has a history of fatigue, shortness of breath and deconditioning over the las t 3 months that has been progressive. He has had no chest pain. Echocardiogram showed an ejection f raction of 40%-45%. He underwent cardiac catheterization today showing no significant coronary arter y disease. On stress testing, his inferior wall has scar. He has had episodes of ventricular tachyc ardia as an outpatient. His aortic valve area is 0.58 with gradients in the 20s. I have been asked to see him to discuss aortic valve replacement. PAST MEDICAL HISTORY: 1. Aortic stenosis. 2. Depressed left ventricular ejection fraction -- echocardiogram shows an EF of 40%-45%, but his ve ntriculogram on cardiac catheterization, his EF is more in line with the 25%-30% range. 3. Degenerative joint disease, status post knee replacement. 4. History of prostate cancer, status post prostatectomy. PAST SURGICAL HISTORY: 1. Hernia repair. 2. Knee replacement. 3. Prostatectomy. ALLERGIES: None. CURRENT MEDICATIONS: 1. Atorvastatin 20 mg at bedtime. 2. Aspirin 325 mg every day. 3. Coreg 3.125 mg b.i.d. 4. Lisinopril 5 mg every day. SOCIAL HISTORY: He does not use alcohol or tobacco. He smoked for a very short period of time many years ago and he also chewed tobacco until he swallowed it and that was the end of his tobacco chewin g. REVIEW OF SYSTEMS: A 10-point review of systems was performed and is negative except as above. PHYSICAL EXAMINATION: GENERAL: This is an elderly gentleman, resting comfortably in the recovery area without complaint. VITAL SIGNS: His heart rate is in the upper 50s, blood pressure is 128/60. HEENT: Sclerae are nonicteric. Pupils equal and round bilaterally. NECK: Supple, without bruit. CHEST: Clear bilaterally. HEART: Rhythm is regular. He has a very soft 2/6 systolic ejection murmur heard on the right sterna l border. ABDOMEN: Soft and nontender without mass. EXTREMITIES: He has no significant edema. VASCULAR: Palpable carotid, radial, femoral and dorsalis pedis pulses bilaterally. VENOUS: He has venous varicosities in both lower extremities below the knees. ASSESSMENT AND PLAN: This is a very pleasant 81-year-old gentleman with aortic stenosis. He has a m ixed picture on echo and cardiac catheterization with an aortic valve area of 0.58 and gradients that would not support severe stenosis. Echocardiogram shows an ejection fraction of 40%-45%, but on chon triculogram, he is more in line with a 25%-30% ejection fraction. He also has a significantly tortuo us aorta and needs a CT angiogram to further evaluate his aortic pathology. I have discussed all these findings with the patient and we will see him back in the office to discus s aortic valve replacement with him in the near future after his CT scan has been performed. He pote ntially could be a minimally invasive candidate, although I am a little less enthused in his situatio n with his depressed ventricular function as we would need a longer clamp time with the minimally inv asive technique.
== END ==
LOC: CCL 05:55
PROVIDERS: ATTEND Internal Medicine Cardiovascular Disease
PROC: 4A023N8 Measurement of Cardiac Sampling and Pressure, Bilateral, Percutaneous Approach (ICD-10-PCS; principal; 2017-12-08)
PROC: B2111ZZ Fluoroscopy of Multiple Coronary Arteries using Low Osmolar Contrast (ICD-10-PCS; 2017-12-08)
DX: I25.10 Atherosclerotic heart disease of native coronary artery without angina pectoris (principal); I35.0 Nonrheumatic aortic (valve) stenosis; I47.2 Ventricular tachycardia; I11.0 Hypertensive heart disease with heart failure; I50.20 Unspecified systolic (congestive) heart failure; E78.00 Pure hypercholesterolemia, unspecified; E78.5 Hyperlipidemia, unspecified; Z85.46 Personal history of malignant neoplasm of prostate; Z87.891 Personal history of nicotine dependence; Z96.659 Presence of unspecified artificial knee joint; Z79.899 Other long term (current) drug therapy; Z79.82 Long term (current) use of aspirin
CPT/HCPCS: 76942; 93460; 93567; C1769; J1644; J2001; J2250; J3010

== ENCOUNTER 2017-12-12 08:43 | Outpatient (CLI) | payer MEDICARE ==
[2017-12-12] MEDS ORDERED: ISOVUE-370 76%-LOCM 1 ML ONE (13:30)
== END 2017-12-12 08:44 | disposition home or self-care (01) ==
LOC: BICCT 08:43
PROVIDERS: ATTEND Internal Medicine Cardiovascular Disease
DX: I71.2 Thoracic aortic aneurysm, without rupture (principal); I71.4 Abdominal aortic aneurysm, without rupture; Q79.1 Other congenital malformations of diaphragm
CPT/HCPCS: 71270; 74170

== ENCOUNTER 2017-12-31 09:43 | Day surgery (SDC) | payer MEDICARE ==
[2017-12-30 13:30] VITALS: BMI 32.4
[2017-12-31] MEDS ORDERED: PROPOFOL 20 ML ONE (11:04)
--- NOTE | 2017-12-31 22:17 | ECHO ---
INDICATION: Assess aortic valve for aortic stenosis. Propofol used for conscious sedation. Probe passed easily into the esophagus. FINDINGS: The aortic valve is well visualized. There is significant sclerosis with immobility of the noncorona ry cusp. Planimetry of the aortic valve was estimated 0.8 to 1.0. Overall LVEF is 40-45%. IMPRESSION: Severe aortic stenosis.
== END 2017-12-31 15:15 | disposition home or self-care (01) ==
LOC: CCL 09:43
PROVIDERS: ATTEND Internal Medicine Cardiovascular Disease
DX: I35.0 Nonrheumatic aortic (valve) stenosis (principal); I10 Essential (primary) hypertension; E78.5 Hyperlipidemia, unspecified; Z79.899 Other long term (current) drug therapy
CPT/HCPCS: 93312; J2704

== ENCOUNTER 2019-04-08 12:00 | Inpatient (IN) | payer MEDICARE ==
[2019-04-27] MEDS ORDERED: Midazolam HCl 2 mg/2 ml Vial ONE (08:03)
[2019-04-27] MEDS ORDERED: Fentanyl 100 MCG/2 ML VIAL ONE ×5 (08:03→14:05)
[2019-04-27] MEDS ORDERED: Tranexamic Acid 1,000 MG/10 ML VIAL ONE (08:04)
[2019-04-27] MEDS ORDERED: Sodium Chloride 0.9% 100 ML ONE (08:04)
[2019-04-27] MEDS ORDERED: Vancomycin 1.5 GRAM/300 ML BAG 1.5 GM/300 ML BAG ONE (08:04)
[2019-04-27] MEDS ORDERED: Acetaminophen 325 MG TAB PO PRN ×2 (09:11→12:44)
[2019-04-27] MEDS ORDERED: Ondansetron PF 4 MG/2 ML Vial IVP PRN (09:15)
[2019-04-27] MEDS ORDERED: Promethazine HCl 25 MG SUPP PR PRN (09:15)
[2019-04-27] MEDS ORDERED: Zolpidem Tartrate 5 MG TAB PO PRN (09:15)
[2019-04-27] MEDS ORDERED: HYDROcodone/Acetaminophen 5/325 mg Tablet PO PRN ×3 (09:15→16:33)
[2019-04-27] MEDS ORDERED: Bupivacaine 0.25% 10 ML VIAL EPIDURAL PRN (09:15)
[2019-04-27] MEDS ORDERED: Hydrocerin (Eucerin) Cream 120 gm Jar TOP PRN (09:15)
[2019-04-27] MEDS ORDERED: diphenhydrAMINE 50 MG/ML VIAL IM PRN (09:15)
[2019-04-27] MEDS ORDERED: diphenhydrAMINE 50 MG/ML VIAL IVP PRN (09:15)
[2019-04-27] MEDS ORDERED: Naloxone HCl 0.4 mg/ml Vial IVP PRN (09:15)
[2019-04-27] MEDS ORDERED: Promethazine HCl 25 MG/ML VIAL IM PRN ×2 (09:15→12:29)
[2019-04-27] MEDS ORDERED: traMADol HCl 50 MG TAB PO PRN ×2 (09:15)
[2019-04-27] MEDS ORDERED: Naloxone HCl 0.4 mg/ml Vial IV PRN (09:15)
[2019-04-27] MEDS ORDERED: diphenhydrAMINE 25 MG CAP PO PRN (09:15)
[2019-04-27] MEDS ORDERED: PHENYLEPHRINE-NS 100 MCG/ML 10 ML SYRINGE ONE (09:56)
[2019-04-27] MEDS ORDERED: ePHEDrine/0.9% NaCl/PF SYRINGE 50 mg/10 ml ONE (09:56)
[2019-04-27] MEDS ORDERED: Glycopyrrolate 0.2 MG/ML 5 ML SYRINGE ONE ×2 (09:56)
[2019-04-27] MEDS ORDERED: Rocuronium Bromide 10 MG/ML (10ML VIAL) ONE (09:56)
[2019-04-27] MEDS ORDERED: PROPOFOL 200 MG/20 ML VIAL ONE (09:56)
[2019-04-27] MEDS ORDERED: Lidocaine 1.5% w/Epi 1:200K 30 ML VIAL (Epid Use) ONE (10:01)
[2019-04-27] MEDS ORDERED: Ketorolac Tromethamine 30 MG/ML VIAL IVP SCH (12:00)
[2019-04-27] MEDS ORDERED: Ondansetron HCl/PF 4 MG/2 ML Vial IVP PRN (12:29)
[2019-04-27] MEDS ORDERED: Promethazine HCl 25 MG/ML VIAL SLOW IVP PRN (12:29)
[2019-04-27] MEDS ORDERED: HYDROcodone/Acetaminophen 10/325 mg Tablet PO PRN ×2 (12:44)
[2019-04-27] MEDS ORDERED: Fentanyl 100 MCG/2 ML VIAL SLOW IVP PRN ×2 (12:44)
--- NOTE | 2019-04-27 13:49 | RAD ---
FRONTAL RADIOGRAPH PELVIS: Date: 04/27/2019 COMPARISON: None. HISTORY: Total hip arthroplasty. FINDINGS: There is a left total hip arthroplasty with postoperative gas and fluid adjacent to the proximal left femur. Postsurgical clips in the pelvis are noted. No evidence for hardware failure. No acute fractu re or dislocation. IMPRESSION: Radiographic evidence of recent left total hip arthroplasty. POS: [facility]
--- NOTE | 2019-04-27 13:50 | RAD ---
FROG LEG LATERAL VIEW LEFT HIP: Date: 04/27/2019 COMPARISON: None. HISTORY: Status post left total hip arthroplasty. FINDINGS: Left total hip arthroplasty in place with no evidence for dislocation. Postoperative gas is noted ant erior to the proximal left femur consistent with recent surgery. IMPRESSION: Radiographic evidence of recent left total hip arthroplasty. POS: [facility]
--- NOTE | 2019-04-27 15:27 | PDOC.HOSPP ---
- Subjective Encounter Date: 04/27/19 Encounter Time: 15:25 Subjective: Patient seen and examined. No new complaints. s/p left hip replacement, consulted for medical management - Objective Vital Signs & Weight: Weight Weight 200 lb Radiology Reviewed by me: Yes Hospitalist ROS - Review of Systems ENT: denies: ear pain, ear discharge, nose pain, nose discharge, nose congestion , mouth pain, mouth swelling, throat pain, throat swelling, other Respiratory: denies: cough, dry, shortness of breath, hemoptysis, SOB with excertion, pleuritic pain, sputum, wheezing, other Cardiovascular: denies: chest pain, palpitations, orthopnea, paroxysmal noc. dyspnea, edema, light headedness, other Gastrointestinal: denies: nausea, vomiting, abdominal pain, diarrhea, constipation, melena, hematochezia, other Genitourinary: denies: dysuria, frequency, incontinence, hematuria, retention, other Musculoskeletal: denies: neck pain, shoulder pain, arm pain, back pain, hand pain, leg pain, foot pain, other - Exam General Appearance: NAD, awake alert Eye: PERRL, anicteric sclera ENT: normocephalic atraumatic, no oropharyngeal lesions Neck: supple, symmetric, no JVD, no thyromegaly Heart: RRR, no gallops Respiratory: CTAB, no wheezes, no rales, no ronchi Gastrointestinal: soft, non-tender, non-distended, normal bowel sounds Extremities: no cyanosis, no clubbing Extremities - other findings: Surgical site with dressing Skin: normal turgor, no lesions Neurological: cranial nerve grossly intact, no focal deficits Musculoskeletal: normal tone, normal strength Psychiatric: normal affect, normal behavior Hosp A/P (1) Status post left hip replacement Code(s): Z96.642 - PRESENCE OF LEFT ARTIFICIAL HIP JOINT Status: Acute (2) GERD (gastroesophageal reflux disease) Code(s): K21.9 - GASTRO-ESOPHAGEAL REFLUX DISEASE WITHOUT ESOPHAGITIS Status: Chronic (3) Hyperlipemia Code(s): E78.5 - HYPERLIPIDEMIA, UNSPECIFIED Status: Chronic Qualifiers: (4) Hypertension Code(s): I10 - ESSENTIAL (PRIMARY) HYPERTENSION Status: Chronic (5) Obesity (BMI 30.0-34.9) Code(s): E66.9 - OBESITY, UNSPECIFIED Status: Chronic (6) Systolic CHF, chronic Code(s): I50.22 - CHRONIC SYSTOLIC (CONGESTIVE) HEART FAILURE Status: Chronic (7) Aortic stenosis Code(s): I35.0 - NONRHEUMATIC AORTIC (VALVE) STENOSIS Status: Chronic Qualifiers: Cardiac valve disease etiology: nonrheumatic Qualified Code(s): I35.0 - Nonrheumatic aortic (valve) stenosis (8) H/O prostate cancer Code(s): Z85.46 - PERSONAL HISTORY OF MALIGNANT NEOPLASM OF PROSTATE Status: Chronic - Plan old records reviewed/req, plan discussed w/ family, PT/OT I have seen and examined pt bedside, updated plan to family, continue PT/OT as per [facility] protocol, continue aspirin for DVT prophylaxis as per [facility] protocol, medically stable with current treatment, home medication reconciled. Pain controlled. Epidural as per anesthesia
[2019-04-27] MEDS: Sodium Chloride 0.9% 1,000 ML IV SCH ×2 (15:51→22:11)
[2019-04-27] MEDS ORDERED: CEFAZOLIN 2 GM in Premix Bag 1 BAG IVPB SCH (16:00)
[2019-04-27] MEDS ORDERED: Docusate 100 MG CAP PO PRN (16:35)
[2019-04-27 17:06] VITALS: BMI 32.4
[2019-04-27] MEDS: HYDROcodone/Acetaminophen 5/325 mg Tablet PO PRN (17:28)
[2019-04-27] MEDS: CEFAZOLIN 2 GM in Premix Bag 1 BAG IVPB SCH (17:31)
[2019-04-27] MEDS ORDERED: Vancomycin 1.5 GRAM/300 ML BAG 1.5 GM in Premix Bag 1 BAG IVPB SCH (20:00)
[2019-04-27] MEDS: Ferrous Gluconate 324 MG TAB PO SCH (20:13)
[2019-04-27] MEDS: Senokot S 8.6-50 MG TAB PO SCH (20:13)
[2019-04-27] MEDS: Atorvastatin Calcium 40 MG TAB PO SCH (20:14)
[2019-04-27] MEDS: Carvedilol 3.125 MG TAB PO SCH (20:14)
[2019-04-28] MEDS: CEFAZOLIN 2 GM in Premix Bag 1 BAG IVPB SCH (02:13)
[2019-04-28] MEDS ORDERED: Famotidine 20 MG TAB PO PRN (02:51)
[2019-04-28 05:16] LABS: Hemoglobin 11.5 g/dL (14.0-18.0); Mean Corpuscular HGB CONC 33.4 g/dL (32.0-36.0); Mean Corpuscular Hemoglobin 32.4 pg (27.0-31.0); Mean Corpuscular Volume 97.1 fL (78.0-98.0); Mean Platelet Volume 7.2 fL (7.4-10.4); Platelet Count 189 thou/uL (130-400); RBC Distribution Width 12.2 % (11.5-14.5); Red Blood Cell (RBC) Count 3.56 mill/uL (4.70-6.10); White Blood Cell (WBC) Count 9.4 thou/uL (4.8-10.8)
[2019-04-28] MEDS: fentaNYL Citrate/PF 500 MCG, Bupivacaine 10 ML in Sodium Chloride 0.9% 80 ML EPIDURAL SCH ×2 (05:18→22:09)
--- NOTE | 2019-04-28 07:49 | HP ---
HISTORY OF PRESENT ILLNESS: Mr. Zurita is an 83-year-old male who presents with left hip osteoarthritis. The patient had a left total knee arthroplasty in the past. His pain is 0 to 8 out of 10. he had a stroke in September. Denies numbness, tingling. Hx of afib, followed by Dr. Hall and Dr. Ervin. The patient's left hip pain has failed conservative measures, desires to proceed with an operative intervention. PAST MEDICAL HISTORY: Includes prostate cancer, hyperlipidemia, hypertension, Gilbert's, allergic rhinitis, essential hypertension, dyspnea, sebaceous cyst, malignant neoplasm of prostate, TIA, aortic stenosis. PAST SURGICAL HISTORY: Prostatectomy, hernia repair, left total knee cyst removal. MEDICATIONS: Include 1. Aspirin. 2. Atorvastatin. 3. Carvedilol. 4. Docusate. 5. Glucosamine. 6. Lisinopril. 7. Ranitidine. 8. Hydroxyurea. 9. Hydrochlorothiazide. 10. Lysine. 11. Tramadol. ALLERGIES: NO KNOWN DRUG ALLERGIES. SOCIAL HISTORY: The patient's son at the bedside. The patient is retired, single. Denies alcohol or drug use. PHYSICAL EXAMINATION: GENERAL: Alert and oriented male, in no acute distress, resting comfortably in bed. The patient has at most less than 1 cm shortening of his left versus right. No wounds. Neurovascularly intact. External rotation 30 degrees, internal rotation 10 with a walker. Straight leg raise negative. X-ray showed complete loss of joint space. ASSESSMENT: Left hip osteoarthritis. PLAN: The patient has been cleared by Dr. Hall and Dr. Ervin. Discussed the risks and benefits of the surgery to include, pain, scar, bleeding, infection, damage to vital structures, failure of hardware, repair, need for further surgeries, damage to vital structures, blood clots, complication from anesthesia, loss of life or limb. The patient understood these risks and benefits. The patient elects to proceed. Job ID: [id number] [facility]
[2019-04-28] MEDS: Senokot S 8.6-50 MG TAB PO SCH ×2 (08:08→20:22)
[2019-04-28] MEDS: Carvedilol 3.125 MG TAB PO SCH ×2 (08:09→20:21)
[2019-04-28] MEDS: Lisinopril 5 MG TAB PO SCH (08:09)
[2019-04-28] MEDS: Sodium Chloride 0.9% 1,000 ML IV SCH ×3 (08:11→23:22)
[2019-04-28] MEDS: Ferrous Gluconate 324 MG TAB PO SCH ×2 (08:11→20:22)
[2019-04-28] MEDS: Multivitamin W/ Minerals 1 TAB PO SCH (08:12)
--- NOTE | 2019-04-28 09:29 | OP ---
DATE OF PROCEDURE: 04/27/2019 PREOPERATIVE DIAGNOSIS: Left hip osteoarthritis. POSTOPERATIVE DIAGNOSIS: Left hip osteoarthritis. PROCEDURE PERFORMED: Left total hip arthroplasty. ICU MANAGER: Heri Mcclellan PA-C ANESTHESIOLOGIST: Crow. ANESTHESIA: The patient received a general endotracheal intubation with epidural. ESTIMATED BLOOD LOSS: 200 mL. TOURNIQUET TIME: None. IMPLANTS: Adán Tritanium hemispherical cluster shell, 58 mm, a Trident X3 poly 10 degree liner, and an [id number] neck angle size 10 and a 36 mm +5 femoral head, metal. ANTIBIOTICS: TXA 1 g, vancomycin 1.5, and Ancef 2. COMPLICATIONS: None. HISTORY OF PRESENT ILLNESS: This is a pleasant 83-year-old male with a greater than one year hip pain. 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 I discussed risks and benefits of surgery to include pain, scar, bleeding, infection, damage to vital structures, decreased range of motion, need for further surgeries, damage to nerves, arteries, tendons, limb shortening, external rotation, loss of life or limb, and blood clots. The patient understood the risks and benefit of the procedure and elected to proceed. DESCRIPTION OF PROCEDURE: Time-out was performed, designating the patient's left lower extremity as the operative site based on site, consents, and marking. After time-out, the patient's left lower extremity was prepped and draped in sterile fashion, placed in a lateral position with all bony problems well padded. Axillary roll in place. Made a lateral incision down through skin, carried down through the IT band. The abductors were fatty infiltrated. We came down through the gluteus medius and minimus, came down, T'd the capsule, put a tagging stitch to hold it anterior and posteriorly took down to labrum. We were able to dislocate the head, cut the neck, remove the ball, and then moved, placed acetabular retractors anterior and posterior. We reamed up to a 57, placed a 58 mm cup, placed our poly, anteverted, and with a 10 degree liner, it was more posterior inferior. We washed and removed our stem. We broached up to size 9, which is a little short, placed a 10, which had good length, it was difficult to reduce with a standard, placed a +5, had better Shuck, overall good rotation and alignment and was overall happy with the position. We then washed. We removed our trials, placed a size 10 implant, reduced +5 metal implant. We closed the capsule with #2 Vicryl, closed with #2 Vicryl through small bone passage, the gluteus medius and minimus as well as muscle to muscle. We then closed the IT band with #2 Vicryl with a #2 Stratafix, 0 Stratafix, and 2-0 Stratafix. The patient will be admitted to [facility] protocol, weightbearing as tolerated. We will follow inhouse. Job ID: [id number] [facility]TD[facility]
[2019-04-28] MEDS ORDERED: Aspirin 81 mg Enteric Coated Tablet PO SCH (10:45)
[2019-04-28] MEDS ORDERED: Chloraseptic Spray 180 ml Bottle PO PRN (14:53)
--- NOTE | 2019-04-28 15:17 | PRG ---
DATE OF SERVICE: 04/28/2019 CHIEF COMPLAINT: Sore throat. OBJECTIVE: VITAL SIGNS: Blood pressure is 104/67, pulse is 92, respirations 16, temperature is 98.6, O2 saturation 94% on room air. HEENT: Head is atraumatic and normocephalic. Eyes are PERRLA. Sclerae are nonicteric. Oral mucosa is moist. NECK: Supple. LUNGS: Clear. HEART: S1, S2 normal. No S3. No S4. Abdomen: Soft, nontender. MUSCULOSKELETAL: Left hip area tender to touch with ice pack in place. No clubbing, cyanosis, or edema on the lower extremities. NEUROLOGICAL: He is alert and oriented x4. There are no any motor or sensory deficits. LABORATORY DATA: White count of 9.4, hemoglobin 11.5, hematocrit 34.6, platelet count is 189,000. IMPRESSION: 1. Left hip replacement, status post. 2. Constipation. The patient will be started on MiraLAX along with a stool softener. 3. Sore throat, most likely related to . I will start Chloraseptic. 4. Hyperlipidemia, chronic, stable. 5. Hypertension, chronic, stable. 6. Obesity, chronic, stable. 7. Systolic congestive heart failure, chronic, stable. 8. Aortic stenosis, chronic, stable. 9. History of prostate cancer, chronic, stable. PLAN: We will start him on MiraLAX and he will be on a stool softener. We will continue PT and OT. The case was discussed with the family. He will continue on DVT prophylaxis, which is aspirin 81 mg twice a day. We will continue PT and OT. Job ID: [id number]
[2019-04-28] MEDS ORDERED: Polyethylene Glycol 3350 17 GM Packet PO SCH (15:45)
[2019-04-28] MEDS: Polyethylene Glycol 3350 17 GM Packet PO SCH (16:01)
[2019-04-28] MEDS: Aspirin 81 mg Enteric Coated Tablet PO SCH (20:21)
[2019-04-28] MEDS: Atorvastatin Calcium 40 MG TAB PO SCH (20:21)
[2019-04-29 05:20] LABS: Hemoglobin 11.2 g/dL (14.0-18.0); Mean Corpuscular HGB CONC 33.7 g/dL (32.0-36.0); Mean Corpuscular Volume 97.9 fL (78.0-98.0); Platelet Count 179 thou/uL (130-400); RBC Distribution Width 12.4 % (11.5-14.5); Red Blood Cell (RBC) Count 3.37 mill/uL (4.70-6.10); White Blood Cell (WBC) Count 11.8 thou/uL (4.8-10.8)
[2019-04-29] MEDS: Polyethylene Glycol 3350 17 GM Packet PO SCH (09:33)
[2019-04-29] MEDS: Multivitamin W/ Minerals 1 TAB PO SCH (09:33)
[2019-04-29] MEDS: Aspirin 81 mg Enteric Coated Tablet PO SCH ×2 (09:33→19:43)
[2019-04-29] MEDS: Lisinopril 5 MG TAB PO SCH (09:34)
[2019-04-29] MEDS: Senokot S 8.6-50 MG TAB PO SCH ×2 (09:34→19:43)
[2019-04-29] MEDS: Ferrous Gluconate 324 MG TAB PO SCH ×2 (09:34→19:43)
[2019-04-29] MEDS: Carvedilol 3.125 MG TAB PO SCH ×2 (09:34→19:43)
[2019-04-29] MEDS: Sodium Chloride 0.9% 1,000 ML IV SCH (09:37)
[2019-04-29] MEDS: HYDROcodone/Acetaminophen 5/325 mg Tablet PO PRN (14:03)
--- NOTE | 2019-04-29 14:33 | PRG ---
DATE OF SERVICE: 04/29/2019 SUBJECTIVE: The patient is seen and examined at bedside. He had 2 mucousy bowel movements this morning. He complains about some sore throat, but it is better since he started on Chloraseptic spray. OBJECTIVE: VITAL SIGNS: Blood pressure is 105/69, temperature is 99.2, respiratory rate is 18, O2 saturation is 94% on room air, and his pulse is 96, maximal temperature is 99.8. HEENT: His head is atraumatic and normocephalic. Eyes are PERRLA. Sclerae are nonicteric. Conjunctivae are pinkish. Oral mucosa is moist. NECK: Supple. LUNGS: Clear. HEART: S1 and S2 normal. ABDOMEN: Somewhat distended. Bowel sounds are very active. No guarding. No masses. EXTREMITIES: No clubbing, cyanosis, or edema. Left hip area tender to palpation with some edema around the area. LABORATORY DATA: Showed a white count of 11.8, hemoglobin of 11.2, hematocrit 33.0, and platelet count is 179,000. IMPRESSION: 1. Status post left hip replacement. 2. Constipation. 3. Low-grade fever. 4. Sore throat most likely related to endotracheal tube used during anesthesia, improved on Chloraseptic. 5. Hyperlipidemia chronic, stable. 6. Hypertension, chronic, stable. 7. Obesity, chronic, stable. 8. Systolic congestive heart failure, chronic, stable. 9. Aortic stenosis, chronic, stable. 10. History of prostate cancer, chronic, stable. PLAN: The patient had 1 dose of MiraLAX yesterday. He had 2 mucousy bowel movements since yesterday. We will stop his MiraLAX. Continue his stool softener since he is on opioids orally and epidural. We will continue his aspirin 81 mg twice a day and continue PT and OT and Dr. Suarez is supposed to come and evaluate him later today whether he is going to be watched for additional 24 hours or he can be discharged today. Job ID: [id number]
[2019-04-29] MEDS: fentaNYL Citrate/PF 500 MCG, Bupivacaine 10 ML in Sodium Chloride 0.9% 80 ML EPIDURAL SCH (15:52)
[2019-04-29 17:46] LABS: Bacteria/HPF None Seen HPF (None Seen); Bilirubin Negative (Negative); Blood, Urine 2+ (Negative); Clarity Clear (Clear); Glucose, Urine (Dipstick) Normal (Negative); Leukocyte 75 Leu/uL (Negative); Nitrite Negative (Negative); Protein, Urine (Dipstick) 50 mg/dL (Neg-Trace); Squamous Epithelial None Seen HPF (0-3); Urobilinogen Normal mg/dL (Less than 2)
[2019-04-29] MEDS: Atorvastatin Calcium 40 MG TAB PO SCH (19:43)
[2019-04-30] MEDS: Sodium Chloride 0.9% 1,000 ML IV SCH ×2 (01:26→09:11)
[2019-04-30] MEDS: HYDROcodone/Acetaminophen 5/325 mg Tablet PO PRN ×2 (04:38→11:24)
[2019-04-30 05:08] LABS: Hemoglobin 11.4 g/dL (14.0-18.0); Mean Corpuscular HGB CONC 33.7 g/dL (32.0-36.0); Mean Corpuscular Hemoglobin 32.9 pg (27.0-31.0); Mean Corpuscular Volume 97.4 fL (78.0-98.0); Mean Platelet Volume 7.5 fL (7.4-10.4); Platelet Count 192 thou/uL (130-400); RBC Distribution Width 12.1 % (11.5-14.5); Red Blood Cell (RBC) Count 3.46 mill/uL (4.70-6.10); White Blood Cell (WBC) Count 11.4 thou/uL (4.8-10.8)
[2019-04-30] MEDS: Senokot S 8.6-50 MG TAB PO SCH (08:38)
[2019-04-30] MEDS: Lisinopril 5 MG TAB PO SCH (08:39)
[2019-04-30] MEDS: Ferrous Gluconate 324 MG TAB PO SCH (08:39)
[2019-04-30] MEDS: Aspirin 81 mg Enteric Coated Tablet PO SCH (08:39)
[2019-04-30] MEDS: Multivitamin W/ Minerals 1 TAB PO SCH (08:39)
[2019-04-30] MEDS ORDERED: Cipro 250 MG TAB PO SCH ×2 (09:45→20:00)
[2019-04-30 11:12] VITALS: BP 103/67; TEMP 98.2
--- NOTE | 2019-04-30 13:19 | PRG ---
DATE OF SERVICE: 04/30/2019 SUBJECTIVE: The patient is seen and examined at bedside. He feels significantly better today. He has much less pain in his left hip. His appetite is picking up. OBJECTIVE: VITAL SIGNS: Blood pressure is 103/67, pulse is 81, respiratory rate is 20, and O2 saturation is 95%. Temperature is 98.2. HEENT: His head is atraumatic and normocephalic. Eyes, PERRLA. Sclerae are nonicteric. Conjunctivae are pinkish. Oral mucosa is moist. NECK: Supple. LUNGS: Clear. HEART: S1, S2 normal. No S3. No S4. ABDOMEN: Soft, nontender. Bowel sounds are present. No organomegaly. MUSCULOSKELETAL: Left hip area tender to palpation, status post incision and operation with mild swelling of this area. LABORATORY DATA: Labs showed a white count of 11.4, hemoglobin 11.4, hematocrit 33.7, platelet count is 192,000. Urinalysis done yesterday showed 50 of proteins, 2+ blood, 75 leukocyte esterases, 7-10 rbc's and 4-6 wbc's. Microbiology, none. IMPRESSION: 1. Status post left knee hip replacement. 2. Constipation, resolved. 3. Probably a catheter-related urinary tract infection, started on Cipro. 4. Sore throat resolved. 5. Hyperlipidemia, chronic, stable. 6. Hypertension, chronic, stable. 7. Obesity, chronic, stable. 8. Systolic congestive heart failure, chronic, stable. 9. Aortic stenosis, chronic, stable. 10. History of prostate cancer, chronic, stable. PLAN: The patient can be released home on Cipro 500 mg twice a day for additional 6 days. He will continue his stool softener as needed if he is using opioids. He is going to follow up with Ortho and with primary care physician as recommended. Job ID: [id number]
[2019-04-30] MEDS: Carvedilol 3.125 MG TAB PO SCH (13:46)
--- NOTE | 2019-04-30 14:42 | PQF ---
JAREK CHURCH ZBIGNIEW A MD [id number] [facility] 3318 [id number] CLINICAL DOCUMENTATION IMPROVEMENT CLARIFICATION FORM: ICD-10 Updated PLEASE DO AN ADDENDUM TO THE PROGRESS NOTE WITH ANY DOCUMENTATION UPDATES OR ADDITIONS AND CARRY THROUGH TO DC SUMMARY. THANK YOU. DATE: 04/30/2019 ATTN: DR. Viraj BORREGO Please exercise your independent, professional judgment in responding to the clarification form. Clinical indicators are provided on the bottom of this form for your review. Please check appropriate box(s): [ ] UTI please specify if due to or related to (as applicable): [ x ] Indwelling catheter UTI Site: [ ] Kidney [ ] Ureter [ ] Bladder [ ] Urethra [ x ] Unable to determine Specify Organism (if known): [ ] Unknown organism [ ] Contaminated urine specimen without UTI [ ] Other diagnosis [ ] Unable to determine In addition, please specify: Present on Admission (POA): [ ] Yes [ ] No [ ] Unable to determine For continuity of documentation, please document condition throughout progress notes and discharge summary. Thank You. CLINICAL INDICATORS - SIGNS / SYMPTOMS / LABS / RESULTS AND LOCATION IN MR 04/28 TEMP 99.6 > 99.0 > 99.8 04/29 TEMP 99.2 > 99.1 > 99.3 04/29 WBC 11.8 04/30 WBC 11.4 04/29 URINALYSIS -WBC 4-6 A -RBC 7-10 A -LEUKOCYTE ESTRACE 75 A -BLOOD 2+ PROTEIN 50A 04/29 PN ELMO IMPRESSION: 3). LOW-GRADE FEVER 04/30 PN ELMO IMPRESSION: 2) . PROBABLE A CATHETER-RELATED URINARY TRACT INFECTION, STARTED ON CIPRO. RISK: ADVANCED AGE (83) (BRAZEAL/H&P) 04/27 S/P LT KNEE HIP REPLACEMENT W/ URINARY LUCIA CATHETER PLACEMENT, ( INTRAOPERATIVE RECORD/ 04/27) TREATMENT: URINALYSIS( 04/29/ JAMEY) CIPRO 500MG PO NOW (04/30/ JAMEY) CIPRO 500MG BID AT DISCHARGE (SHABBIRK/04/30) THANK YOU! YASMIN (This form is maintained as a part of the permanent medical record) 2014 [employer] All Rights Reserved ARAMIS [email or web address] [phone] [email or web address]
== END 2019-04-30 14:25 | disposition home or self-care (01) | DRG 470 ==
LOC: SURG A 04-27 06:46 → EDSTATUS 04-27 12:00 → SJJU 04-27 13:54
PROVIDERS: ADMIT Orthopaedic Surgery; ATTEND Orthopaedic Surgery
PROC: 0SRB02Z Replacement of Left Hip Joint with Metal on Polyethylene Synthetic Substitute, Open Approach (ICD-10-PCS; principal; 2019-04-27)
DX: M16.12 Unilateral primary osteoarthritis, left hip (principal); T83.511A Infection and inflammatory reaction due to indwelling urethral catheter, initial encounter; N39.0 Urinary tract infection, site not specified; I50.22 Chronic systolic (congestive) heart failure; E80.4 Gilbert syndrome; I25.10 Atherosclerotic heart disease of native coronary artery without angina pectoris; E78.5 Hyperlipidemia, unspecified; E11.9 Type 2 diabetes mellitus without complications; J30.2 Other seasonal allergic rhinitis; K21.9 Gastro-esophageal reflux disease without esophagitis; E66.9 Obesity, unspecified; I11.0 Hypertensive heart disease with heart failure; I35.0 Nonrheumatic aortic (valve) stenosis; K59.00 Constipation, unspecified; J02.9 Acute pharyngitis, unspecified; Z68.32 Body mass index [BMI] 32.0-32.9, adult; Z79.84 Long term (current) use of oral hypoglycemic drugs; Z86.73 Personal history of transient ischemic attack (TIA), and cerebral infarction without residual deficits; Z85.46 Personal history of malignant neoplasm of prostate; Z79.82 Long term (current) use of aspirin; Z79.899 Other long term (current) drug therapy
CPT/HCPCS: 36415; 72170; 81001; 85027; C1776; J0690; J2001; J2250; J2405; J2550; J2704; J3010; J3490

== ENCOUNTER 2019-04-08 12:43 | Outpatient (CLI) | payer MEDICARE ==
[2019-04-08 14:49] LABS: #Eosinphils 0.4 thou/uL (0.0-0.7); #Lymphocytes 2.1 thou/uL (1.20-3.40); #Monocytes 0.9 thou/uL (0.11-0.59); #Neutrophils 5.5 thou/uL (1.40-6.50); %Basophils 0.4 % (0.0-1.0); %Eosinophils 4.4 % (0.0-10.0); %Lymphocytes 23.6 % (21.0-51.0); %Monocytes 9.6 % (0.0-10.0); Hemoglobin 14.4 g/dL (14.0-18.0); Mean Corpuscular HGB CONC 33.3 g/dL (32.0-36.0); Mean Corpuscular Hemoglobin 32.7 pg (27.0-31.0); Mean Corpuscular Volume 98.2 fL (78.0-98.0); Mean Platelet Volume 7.1 fL (7.4-10.4); Platelet Count 272 thou/uL (130-400); RBC Distribution Width 12.6 % (11.5-14.5); White Blood Cell (WBC) Count 8.9 thou/uL (4.8-10.8)
[2019-04-08 14:55] LABS: Prothrombin Time 13.5 SEC (12.0-14.7)
== END 2019-04-08 12:44 | disposition home or self-care (01) ==
LOC: LABBT 12:43
PROVIDERS: ATTEND Orthopaedic Surgery
DX: Z01.812 Encounter for preprocedural laboratory examination (principal); M25.552 Pain in left hip
CPT/HCPCS: 85025; 85610; 87081